=== PATIENT | female | born 1985 | race African-American/Black ===

== ENCOUNTER 2017-02-10 13:25 | Emergency (ER) | payer MEDICAID, OTHER ==
[~2017-02-10] VITALS: Ht 175.3 cm; Wt 116.1 kg
[~2017-02-10 13:25] MED LIST: ALBUTEROL SULF8.5 GM INH; AUGMENTIN 875-1 EAC1 ORAL; AZITHROMYCIN250 MG ORAL; FLONASE1 SPRAYS NASAL; IBUPROFEN600 MG ORAL; IBUPROFEN800 MG ORAL; MECLIZINE HCL25 MG ORAL; NAPROXEN500 M2 ORAL; NKM; NORCO 5-325 TA1 EACH ORAL; PROMETHAZINE V237 ML ORAL; UNOBMED
[2017-02-10 13:29] VITALS: BP 125/69
[2017-02-10] MEDS ORDERED: FEOSOL1 TAB ORAL (13:36)
[2017-02-10] MEDS ORDERED: Tubing IV Cassette IV ONE (13:49)
[2017-02-10 14:22] LABS: APPEARANCE,URINE CLEAR; KETONES,URINE NEGATIVE (NEGATIVE); LEUKOCYTE ESTERASE ,URINE NEGATIVE (NEGATIVE); NITRITE,URINE NEGATIVE (NEGATIVE); PH,URINE 6 (4.5-8.0); PROTEIN,URINE NEGATIVE (NEGATIVE); UROBILINOGEN,URINE NORMAL MG/DL (0.0-1.0)
[2017-02-10 14:30] LABS: EOSINOPHILS % (AUTO) 3.3 % (0.0-3.0); LYMPHOCYTES % (AUTO) 23.3 % (20.0-45.0); MEAN CORPUSCULAR HEMOGLOBIN 19.5 PG (27.0-31.0); MEAN CORPUSCULAR HGB CONC 28.5 G/DL (32.0-36.0); MEAN CORPUSCULAR VOLUME 68 FL (80-99); MONOCYTES % (AUTO) 6.3 % (1.0-10.0); NEUTROPHILS % (AUTO) 66.1 % (45.0-75.0); PLATELET COUNT 385 K/UL (150-450); RED BLOOD COUNT 5.16 M/UL (4.20-5.40); RED CELL DISTRIBUTION WIDTH 19.8 % (11.6-14.8); WHITE BLOOD COUNT 7.5 K/UL (4.8-10.8)
[2017-02-10 14:39] LABS: BACTERIA,URINE OCCASIONAL /HPF; RBC,URINE 15-20 /HPF (0 - 2); SQUAMOUS EPITHELIAL CELL,UR OCCASIONAL /LPF (NONE/OCC); WBC,URINE 0-2 /HPF (0 - 2)
[2017-02-10 14:47] LABS: ALANINE AMINOTRANSFERASE 46 U/L (12-78); ALBUMIN/GLOBULIN RATIO 0.8 (1.0-2.7); ANION GAP 8 mmol/L (5-15); ASPARTATE AMINO TRANSFERASE 28 U/L (15-37); CALCIUM 8.7 MG/DL (8.5-10.1); CARBON DIOXIDE 26 MMOL/L (21-32); CHLORIDE 105 MMOL/L (98-107); CREATININE 0.8 MG/DL (0.55-1.30); GLOMERULAR FILTRATION RATE > 60 mL/min (>60); LIPASE 113 U/L (73-393); POTASSIUM 3.7 MMOL/L (3.5-5.1); SODIUM 139 MMOL/L (136-145); TOTAL PROTEIN 7.6 G/DL (6.4-8.2)
[2017-02-10 14:50] LABS: PROTHROMBIN TIME 10.3 SEC (9.30-11.50)
[2017-02-10] MEDS ORDERED: MULTIVITAMINS1 EA14 PO (15:02)
[2017-02-10] MEDS ORDERED: IBUPROFEN600 MG ORAL (15:02)
--- NOTE | 2017-02-10 15:24 | Diagnostic Imaging Report ---
Indication:Lower abdominal and pelvic pain. Heavy vaginal bleeding 31-year-old female Technique: Grayscale and duplex Doppler imaging of the pelvis performed utilizing a transabdominal scan and endovaginal scan. Comparison: None Findings: There is some blood noted within the endovaginal canal. Endometrium is about 7 mm in thickness which is within normal limits. There is dopplerable blood flow within both ovaries which show some follicles. Nabothian cysts are present in the cervix. The uterus is somewhat heterogeneous. There is a suggestion of uterine fibroids. For example in the anterior uterine body there is a 1.8 cm hypoechoic probable fibroid. Uterus measures approximately 8 x 5 x 4 cm. Right ovary 3.5 x 3.1 x 2.5 cm. Left ovary 3.2 x 3.3 x 2.9 cm. Impression: Some blood in the endometrial canal noted currently. This may be normal during certain phases of the menstrual cycle. The endometrium is normal in thickness. Suggestion of uterine fibroids.
[2017-02-10 15:35] VITALS: BP 125/69
--- NOTE | 2017-02-10 16:39 | Emergency Room Report ---
History of Present Illness General Chief Complaint: Female Urogenital Problems Source: Patient Present Illness HPI The patient is a 31-year-old female presenting for vaginal bleeding. She states that she usually has a regular menstruation and has been evaluated with ultrasound and biopsy 2 years prior which was unremarkable. Last menstrual period was 11/23/2016 and she states she has bleeding ever since. She states she uses 5 pads daily. She denies any pain at this time. She denies using any hormonal therapy or other medications. She denies any other symptoms including N, V, F, chills, CP, SOB, rash, dysuria , vaginal DC, back pain, abd pain Allergies: Coded Allergies: No Known Allergies (Unverified , 04/11/15) Patient History Past Medical History: see triage record Pertinent Family History: none Last Menstrual Period: Current Now: No Reviewed Nursing Documentation: PMH: Agreed, PSxH: Agreed Nursing Documentation-PMH Hx Cardiac Problems: Yes - Heart Murmur Review of Systems All Other Systems: negative except mentioned in HPI Physical Exam Vital Signs Date Time Temp Pulse Resp B/P (MAP) Pulse Ox O2 Delivery O2 Flow Rate FiO2 02/10/17 13:29 97.9 73 16 125/69 100 Room Air Sp02 EP Interpretation: reviewed, normal General Appearance: no apparent distress, alert, GCS 15, non-toxic Head: normocephalic, atraumatic Eyes: bilateral eye normal inspection, bilateral eye PERRL ENT: hearing grossly normal, normal pharynx, no angioedema, normal voice Neck: full range of motion, supple/symm/no masses Respiratory: chest non-tender, lungs clear, normal breath sounds, speaking full sentences Gastrointestinal: normal bowel sounds, non tender, soft, non-distended, no guarding, no rebound Genitourinary: normal inspection, no CVA tenderness Musculoskeletal: back normal, gait/station normal, normal range of motion, non- tender Neurologic: alert, oriented x3, responsive, motor strength/tone normal, sensory intact, speech normal Psychiatric: judgement/insight normal, memory normal, mood/affect normal, no suicidal/homicidal ideation Skin: normal color, no rash, warm/dry, well hydrated Medical Decision Making PA Attestation Dr. Hilton is my supervising physician. Patient management was discussed with my supervising physician Diagnostic Impression: Primary Impression: Vaginal bleeding Additional Impression: Uterine fibroid Qualified Codes: D25.9 - Leiomyoma of uterus, unspecified ER Course The patient is a 31-year-old female presenting for vaginal bleeding. Differential diagnosis considered but not limited to: UTI, vaginitis, pyelonephritis, pyelonephrosis, PID, fibroids, hemorrhagic cyst, torsion, ectopic PE: vitals WNL. Afebrile. No conjunctival pallor Abdomen: Normal appearance. Non distended. No ecchymosis. Normal BS. Non TTP. No McBurney point tenderness. No guarding. No CVA tenderness CBC: Hemoglobin and hematocrit are decreased. No leukocytosis CMP is unremarkable Urinalysis shows occult blood and red blood cells. No signs of infection. Negative US: Some blood in the endometrial canal noted currently. This may be normal during certain phases of the menstrual cycle. The endometrium is normal in thickness. Suggestion of uterine fibroids. The patient was informed of these results. She will followup with her OB. She is given prescription for Motrin. ER precautions given Laboratory Tests Test 02/10/17 13:20 02/10/17 13:35 Urine Color Pale yellow Urine Appearance Clear Urine pH 6 (4.5-8.0) Urine Specific [place] 1.020 (1.005-1.035) Urine Protein Negative (NEGATIVE) Urine Glucose (UA) Negative (NEGATIVE) Urine Ketones Negative (NEGATIVE) Urine Occult Blood 5+ (NEGATIVE) H Urine Nitrite Negative (NEGATIVE) Urine Bilirubin Negative (NEGATIVE) Urine Urobilinogen Normal MG/DL (0.0-1.0) Urine Leukocyte Esterase Negative (NEGATIVE) Urine RBC 15-20 /HPF (0 - 2) H Urine WBC 0-2 /HPF (0 - 2) Urine Squamous Epithelial Cells Occasional /LPF Urine Bacteria Occasional /HPF (NONE) Urine HCG, Qualitative Negative White Blood Count 7.5 K/UL (4.8-10.8) Red Blood Count 5.16 M/UL (4.20-5.40) Hemoglobin 10.0 G/DL (12.0-16.0) L Hematocrit 35.2 % (37.0-47.0) L Mean Corpuscular Volume 68 FL (80-99) L Mean Corpuscular Hemoglobin 19.5 PG (27.0-31.0) L Mean Corpuscular Hemoglobin Concent 28.5 G/DL (32.0-36.0) L Red Cell Distribution Width 19.8 % (11.6-14.8) H Platelet Count 385 K/UL (150-450) Mean Platelet Volume 9.0 FL (6.5-10.1) Neutrophils (%) (Auto) 66.1 % (45.0-75.0) Lymphocytes (%) (Auto) 23.3 % (20.0-45.0) Monocytes (%) (Auto) 6.3 % (1.0-10.0) Eosinophils (%) (Auto) 3.3 % (0.0-3.0) H Basophils (%) (Auto) 1.0 % (0.0-2.0) Prothrombin Time 10.3 SEC (9.30-11.50) Prothrombin Time INR 1.0 (0.9-1.1) PTT 26 SEC (23-33) Sodium Level 139 MMOL/L (136-145) Potassium Level 3.7 MMOL/L (3.5-5.1) Chloride Level 105 MMOL/L (98-107) Carbon Dioxide Level 26 MMOL/L (21-32) Anion Gap 8 mmol/L (5-15) Blood Urea Nitrogen 5 mg/dL (7-18) L Creatinine 0.8 MG/DL (0.55-1.30) Estimate Glomerular Filtration Rate > 60 mL/min (>60) Glucose Level 101 MG/DL (74-106) Calcium Level 8.7 MG/DL (8.5-10.1) Total Bilirubin 0.2 MG/DL (0.2-1.0) Aspartate Amino Transferase (AST) 28 U/L (15-37) Alanine Aminotransferase (ALT) 46 U/L (12-78) Alkaline Phosphatase 91 U/L (46-116) Total Protein 7.6 G/DL (6.4-8.2) Albumin 3.3 G/DL (3.4-5.0) L Globulin 4.3 g/dL Albumin/Globulin Ratio 0.8 (1.0-2.7) L Lipase 113 U/L (73-393) Human Chorionic Gonadotropin, Quant < 1 mIU/mL (1-6) L Lab Results Impression CBC: Hemoglobin and hematocrit are decreased. No leukocytosis CMP is unremarkable Urinalysis shows occult blood and red blood cells. No signs of infection. Negative CT/MRI/US Diagnostic Results CT/MRI/US Diagnostic Results : Imaging Test Ordered: Pelvic US Impression Some blood in the endometrial canal noted currently. This may be normal during certain phases of the menstrual cycle. The endometrium is normal in thickness. Suggestion of uterine fibroids. Last Vital Signs Date Time Temp Pulse Resp B/P (MAP) Pulse Ox O2 Delivery O2 Flow Rate FiO2 02/10/17 13:29 97.9 73 16 125/69 100 Room Air Status: improved Disposition: HOME, SELF-CARE Condition: Improved Scripts Multivitamin (Multivitamins) 1 Each Tablet 1 EACH PO DAILY, #30 TAB Prov: CHENCHO HASSAN 02/10/17 Ibuprofen* (MOTRIN*) 600 Mg Tablet 600 MG ORAL Q8H Y for For Pain, #30 TAB 0 Refills Prov: CHENCHO HASSAN 02/10/17 Patient Instructions: Uterine Fibroids, Metrorrhagia, Dysmenorrhea Additional Instructions: I discussed my findings with the patient. All questions and concerns have been answered. Treatment and medication compliance have been addressed. Return to ED if symptoms worsen, new symptoms arise, or if needed for any reason. Patient verbalized understanding of discharge instructions. The patient is to followup with her OB as soon as possible CHENCHO HASSAN Feb 10, 2017 16:39
== END 2017-02-10 15:35 | disposition home or self-care (01) ==
LOC: EMR 14:02
DX: N93.9 Abnormal uterine and vaginal bleeding, unspecified (principal); D25.9 Leiomyoma of uterus, unspecified; N88.8 Other specified noninflammatory disorders of cervix uteri
CPT/HCPCS: 36415; 76856; 80053; 81003; 81025; 83690; 84702; 85025; 85610; 85730; 96360; 99284

== ENCOUNTER 2018-08-23 14:36 | Emergency (ER) | payer MEDICAID ==
[~2018-08-23] VITALS: Ht 175.3 cm; Wt 111.1 kg
[~2018-08-23 14:36] MED LIST changes: +FEOSOL1 TAB ORAL; +MULTIVITAMINS1 EA14 PO
--- NOTE | 2018-08-23 15:30 | Emergency Room Report ---
History of Present Illness General Chief Complaint: Upper Respiratory Illness Source: Patient Present Illness HPI 32-year-old female presents to the emergency department complaining of 9 out of 10 in severity sore throat, right-sided sinus pressure, headache subjective fevers and chills 2 days. Patient denies cough, ear pain, high fevers, lethargy, neck pain/stiffness, irritability, photophobia dehydration, N/V/D. Denies Cp, Palpitations, LOC, AMS, seizures, paresthesias, or changes in Hearing or vision, no Sudden severe JOHNSON. Denies hx of smoking, asthma or COPD. Allergies: Coded Allergies: No Known Allergies (Unverified , 04/11/15) Patient History Past Medical History: see triage record Past Surgical History: none Pertinent Family History: none Last Menstrual Period: 5-1 Now: No Reviewed Nursing Documentation: PMH: Agreed; PSxH: Agreed Nursing Documentation-PMH Past Medical History: No History, Except For Hx Cardiac Problems: Yes - Heart Murmur History Of Psychiatric Problem: Yes - anxiety, panic attacks Review of Systems All Other Systems: negative except mentioned in HPI Physical Exam Vital Signs Date Time Temp Pulse Resp B/P (MAP) Pulse Ox O2 Delivery O2 Flow Rate FiO2 08/23/18 14:49 98.2 84 20 96 Room Air Sp02 EP Interpretation: reviewed, normal General Appearance: no apparent distress, alert, GCS 15, non-toxic Head: normocephalic, atraumatic Eyes: bilateral eye normal inspection, bilateral eye PERRL ENT: hearing grossly normal, normal voice, TMs + canals normal, uvula midline, moist mucus membranes, nasal congestion, tonsillar swelling, pharyngeal erythema Neck: full range of motion Respiratory: chest non-tender, lungs clear, normal breath sounds, speaking full sentences Cardiovascular #1: regular rate, rhythm Musculoskeletal: gait/station normal, normal range of motion, non-tender Neurologic: alert, oriented x3, responsive, motor strength/tone normal, sensory intact, speech normal, grossly normal Psychiatric: judgement/insight normal Skin: normal color, no rash, warm/dry, well hydrated Lymphatic: no adenopathy Medical Decision Making PA Attestation Dr. michaud is my supervising Physician whom patient management has been discussed with. Diagnostic Impression: Primary Impression: Pharyngitis, acute Qualified Codes: J02.0 - Streptococcal pharyngitis ER Course 32-year-old female presents to the emergency department complaining of 9 out of 10 in severity sore throat, right-sided sinus pressure, headache subjective fevers and chills 2 days. Patient denies cough, ear pain, high fevers, lethargy, neck pain/stiffness, irritability, photophobia dehydration, N/V/D. Denies Cp, Palpitations, LOC, AMS, seizures, paresthesias, or changes in Hearing or vision, no Sudden severe JOHNSON. Denies hx of smoking, asthma or COPD. Ddx considered but are not limited to: pharyngitis, strep, ASSISTANT DESIGNER, ludwigs angina, URI Vital signs: are WNL, pt. is afebrile H&PE are most consistent with: pharyngitis presumed strep. ORDERS: None required at this time as the diagnosis is clinical ED INTERVENTIONS: none required at this time. DISCHARGE: At this time pt. is stable for d/c to home. Will provide printed patient care instructions, and any necessary prescriptions. Care plan and follow up instructions have been discussed with the patient prior to discharge. Last Vital Signs Date Time Temp Pulse Resp B/P (MAP) Pulse Ox O2 Delivery O2 Flow Rate FiO2 08/23/18 14:49 98.2 84 20 96 Room Air Disposition: HOME, SELF-CARE Condition: Stable Patient Instructions: Allergies, [id number], Pharyngitis, [id number] Additional Instructions: Take medications as directed. Follow up with a Primary Care Provider in 3-5 days, even if your symptoms have resolved. --Please review list of primary care clinics, if you do not already have a primary care provider Return sooner to ED if new symptoms occur, or current symptoms become worse. - Please note that this Emergency Department Report was dictated using [employer] technology software, occasionally this can lead to erroneous entry secondary to interpretation by the dictation equipment. Mariama Ortiz August 23, 2018 15:30
[2018-08-23] MEDS ORDERED: AUGMENTIN 875-1 EAC1 ORAL (15:31)
[2018-08-23] MEDS ORDERED: AFRIN NASAL SPR30 ML NASAL (15:31)
--- NOTE | 2018-08-23 15:40 | NUR ---
ER DISCHARGE NOTE: Patient is cleared to be discharged per ERMD, pt is aox4, on room air, with stable vital signs. pt was given dc and prescription instructions, pt was able to verbalize understanding, pt is able to ambulate with steady gait. pt took all belongings.
[2018-08-23 16:25] VITALS: BP 104/61
[2018-08-23 19:23] VITALS: BP 104/61
== END 2018-08-23 15:45 | disposition home or self-care (01) ==
LOC: EMR 15:38
DX: J02.9 Acute pharyngitis, unspecified (principal); F41.9 Anxiety disorder, unspecified
CPT/HCPCS: 99281